=== PATIENT | male | born 1985 | race Caucasian/White ===

== ENCOUNTER 2019-09-09 19:25 | Emergency (ER) | payer MEDICARE, MEDICAID ==
[~2019-09-09] VITALS: Ht 182.9 cm; Wt 101.5 kg
[2019-09-09 21:09] LABS: BASOPHILS # (AUTO) 0.02 x10^3/uL (0-0.1); BASOPHILS % (AUTO) 0 % (0-1); EOSINOPHILS # (AUTO) 0.05 x10^3/uL (0-0.4); EOSINOPHILS % (AUTO) 0 % (1-7); LYMPHOCYTES % (AUTO) 8 % (22-44); MD NO; MEAN CORPUSCULAR HEMOGLOBIN 29.7 pg (27.5-34.5); MEAN CORPUSCULAR HGB CONC 33.8 g/dL (33.2-36.2); MEAN PLATELET VOLUME 12.4 fL (7.4-10.4); MONOCYTES # (AUTO) 0.35 x10^3/uL (0.2-0.8); MONOCYTES % (AUTO) 2 % (2-9); NEUTROPHILS # (AUTO) 14.26 x10^3/uL (1.8-6.8); NEUTROPHILS % (AUTO) 90 % (42-75); PLATELET COUNT 248 x10^3/uL (130-400); RED BLOOD COUNT 6.35 x10^6/uL (4.38-5.82); RED CELL DISTRIBUTION WIDTH 12.7 % (9.4-14.8)
--- NOTE | 2019-09-09 21:10 | NUR ---
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
[2019-09-09 21:18] LABS: ALANINE AMINOTRANSFERASE 28 U/L (12-78); ALBUMIN 4.8 g/dL (3.4-5.0); ANION GAP 13 mmol/L (5-15); CALCIUM 9.6 mg/dL (8.5-10.1); CHLORIDE 97 mmol/L (98-107); CREATININE 1.15 mg/dL (0.7-1.3)
[2019-09-09 21:20] LABS: ALKALINE PHOSPHATASE 99 U/L (45-117); BILIRUBIN,TOTAL 1.4 mg/dL (0.2-1.0); TOTAL PROTEIN 8.9 g/dL (6.4-8.2)
[2019-09-09 21:22] LABS: MICROSCOPIC INDICATED
[2019-09-09] MEDS ORDERED: ONDANSETRON 2MG/ML, 2ML IVPush ONE (21:30)
[2019-09-09] MEDS ORDERED: SODIUM CHLORIDE 0.9% 1,000ML IVBOLUS ONE (21:30)
[2019-09-09] MEDS ORDERED: ONDANSETRON 2MG/ML, 2ML ONE (21:35)
[2019-09-09 21:49] VITALS: BP 141/88
--- NOTE | 2019-09-09 21:49 | NUR ---
PIV PLACED. PLUMBING TECHNICIAN, IVF RUNNING. PT RESTING COMFORTABLY ON GURNEY. NADN. WARM BLANKET PROVIDED.
--- NOTE | 2019-09-09 22:21 | NUR ---
ALL RESULTS ARE BACK AT THIS TIME. IVF COMPLETE. CHART UP FOR RECHECK.
--- NOTE | 2019-09-09 22:29 | NUR ---
MD AT BEDSIDE TO UPDATE PT ON POC.
== END 2019-09-09 23:02 | disposition home or self-care (01) ==
LOC: ED 22:15
DX: R11.2 Nausea with vomiting, unspecified (principal); E86.0 Dehydration; R10.13 Epigastric pain; R73.9 Hyperglycemia, unspecified; R00.0 Tachycardia, unspecified
CPT/HCPCS: 36415; 80053; 81001; 83690; 85025; 96361; 96374; 99283; J2405; J7030

== ENCOUNTER 2019-09-10 22:22 | Inpatient (IN) | payer MEDICARE, MEDICAID ==
[~2019-09-10] VITALS: Ht 182.9 cm; Wt 99.5 kg
[2019-09-10] MEDS ORDERED: FAMOTIDINE 20 MG/2 ML ONE (23:20)
[2019-09-10] MEDS ORDERED: METOCLOPRAMIDE 5 MG/ML, 2ML ONE (23:20)
[2019-09-10] MEDS ORDERED: METOCLOPRAMIDE 5 MG/ML, 2ML IVPush ONE (23:30)
[2019-09-10] MEDS ORDERED: SODIUM CHLORIDE FLUSH 10ML SYR IVF ONE (23:30)
[2019-09-10] MEDS ORDERED: SODIUM CHLORIDE 0.9% 1,000ML IVBOLUS ONE (23:30)
[2019-09-10] MEDS ORDERED: FAMOTIDINE 20 MG/2 ML IV ONE (23:30)
[2019-09-10 23:42] LABS: MEAN CORPUSCULAR HEMOGLOBIN 29.1 pg (27.5-34.5); MEAN CORPUSCULAR HGB CONC 32.5 g/dL (33.2-36.2); MEAN CORPUSCULAR VOLUME 89.4 fL (81-97); MEAN PLATELET VOLUME 11.5 fL (7.4-10.4); PLATELET COUNT 247 x10^3/uL (130-400); RED BLOOD COUNT 6.08 x10^6/uL (4.38-5.82); RED CELL DISTRIBUTION WIDTH 12.6 % (9.4-14.8)
--- NOTE | 2019-09-10 23:46 | NUR ---
THIS IS A 34 YO MALE COMING IN FOR PERSISTENT VOMITING, SEEN HERE LAST NIGHT FOR SAME. STATES MEDICATIONS ARE NOT WORKING THAT HE WAS SENT HOME WITH. PATIENT CURRENTLY C/O EPIGATRIC PAIN, NO RADIATION, VOMITING X2.5 DAYS. DENIES CONSTIPATION OR DIRRHEA. NO OTHER COMPLAINTS AT THIS TIME. A&OX4, VSS, PIV PLACED, MEDICATED PER EMAR, TOLERATED WELL. CALL LIGHT IN REACH
--- NOTE | 2019-09-10 23:51 | NUR ---
PATIENT TO CT. UA COLLECTED AND SENT
[2019-09-10 23:52] LABS: ALBUMIN 4.5 g/dL (3.4-5.0); ANION GAP 15 mmol/L (5-15); CALCIUM 9.4 mg/dL (8.5-10.1); CHLORIDE 86 mmol/L (98-107)
[2019-09-10 23:56] LABS: ALANINE AMINOTRANSFERASE 24 U/L (12-78); ALKALINE PHOSPHATASE 98 U/L (45-117); BILIRUBIN,TOTAL 1.6 mg/dL (0.2-1.0); CREATININE 1.06 mg/dL (0.7-1.3); TOTAL PROTEIN 8.6 g/dL (6.4-8.2)
[2019-09-11 00:04] LABS: MICROSCOPIC INDICATED
[2019-09-11 00:20] LABS: BASOPHILS # (AUTO) 0.03 x10^3/uL (0-0.1); BASOPHILS % (AUTO) 0 % (0-1); EOSINOPHILS % (AUTO) 0 % (1-7); LYMPHOCYTES # (AUTO) 1.88 x10^3/uL (1-3.4); LYMPHOCYTES % (AUTO) 9 % (22-44); MD SCAN; MONOCYTES # (AUTO) 1.37 x10^3/uL (0.2-0.8); MONOCYTES % (AUTO) 7 % (2-9); NEUTROPHILS # (AUTO) 17.84 x10^3/uL (1.8-6.8); NEUTROPHILS % (AUTO) 84 % (42-75)
[2019-09-11] MEDS ORDERED: CARI1CAP PO (00:25)
[2019-09-11] MEDS ORDERED: METF500T17 PO (00:25)
[2019-09-11] MEDS ORDERED: OMEP-110 PO (00:25)
[2019-09-11] MEDS ORDERED: POTASSIUM CHLORIDE 20 MEQ in SODIUM CHLORIDE 0.9% 1,000 ML IV ONE (00:41)
[2019-09-11] MEDS ORDERED: MORPHINE SULFATE 4 MG/ML, 1ML ONE (00:50)
[2019-09-11] MEDS ORDERED: ONDANSETRON 2MG/ML, 2ML ONE (00:50)
--- NOTE | 2019-09-11 00:59 | NUR ---
PATIENT MEDICATED PER EMAR, TOLERATED WELL
[2019-09-11] MEDS ORDERED: SODIUM CHLORIDE 0.9% 1,000ML IVBOLUS ONE (01:00)
[2019-09-11] MEDS ORDERED: POTASSIUM CHLORIDE 20 MEQ in SODIUM CHLORIDE 0.9% 250 ML IV ONE (01:00)
[2019-09-11] MEDS ORDERED: ONDANSETRON 2MG/ML, 2ML IVPush PRN (01:00)
[2019-09-11] MEDS ORDERED: MORPHINE SULFATE 4 MG/ML, 1ML IVPush PRN (01:00)
--- NOTE | 2019-09-11 01:31 | NUR ---
REPORT GIVEN TO MALIK ROMAN. PLAN OF CARE DISCUSSED
[2019-09-11 01:58] VITALS: BP 153/94
[2019-09-11] MEDS ORDERED: PROMETHAZINE 25 MG/ML, 1ML IM PRN (02:00)
[2019-09-11] MEDS ORDERED: METOCLOPRAMIDE 5 MG/ML, 2ML IVPush PRN (02:00)
[2019-09-11] MEDS ORDERED: morphine SULFATE 10 MG/ML, 1ML IVPush PRN (02:00)
[2019-09-11] MEDS ORDERED: GABAPENTIN 300 MG CAPSULE PO PRN (02:00)
[2019-09-11] MEDS ORDERED: TRAZODONE 50MG TABLET PO PRN (02:00)
[2019-09-11] MEDS ORDERED: ACETAMINOPHEN 325 MG TABLET PO PRN (02:00)
[2019-09-11] MEDS ORDERED: PANTOPRAZOLE 40 MG IV IVPush ONE (02:30)
[2019-09-11 02:42] LABS: AMPHETAMINE SCREEN, URINE Negative (Negative); BARBITURATE SCREEN, URINE Negative (Negative); BENZODIAZEPINE SCREEN, URINE Negative (Negative); CANNABINOID SCREEN, URINE Positive (Negative); COCAINE SCREEN, URINE Negative (Negative); METHADONE SCREEN, URINE Negative (Negative); OPIATE SCREEN, URINE Negative (Negative)
[2019-09-11] MEDS: SODIUM CHLORIDE 0.9% 1,000 ML IV SCH ×3 (02:43→21:03)
[2019-09-11] MEDS: INSULIN LISPRO 100 UNITS/ML, PEN SQ-INSULIN SCH ×5 (03:08→21:09)
[2019-09-11 05:34] LABS: ANION GAP 10 mmol/L (5-15); CALCIUM 8.9 mg/dL (8.5-10.1); CHLORIDE 96 mmol/L (98-107)
[2019-09-11 05:35] LABS: CREATININE 0.79 mg/dL (0.7-1.3)
[2019-09-11 05:36] LABS: BASOPHILS # (AUTO) 0.01 x10^3/uL (0-0.1); BASOPHILS % (AUTO) 0 % (0-1); EOSINOPHILS # (AUTO) 0.01 x10^3/uL (0-0.4); EOSINOPHILS % (AUTO) 0 % (1-7); LYMPHOCYTES # (AUTO) 1.49 x10^3/uL (1-3.4); LYMPHOCYTES % (AUTO) 10 % (22-44); MD NO; MEAN CORPUSCULAR HEMOGLOBIN 29.6 pg (27.5-34.5); MEAN CORPUSCULAR HGB CONC 33.6 g/dL (33.2-36.2); MEAN CORPUSCULAR VOLUME 87.9 fL (81-97); MEAN PLATELET VOLUME 13.3 fL (7.4-10.4); MONOCYTES # (AUTO) 1.27 x10^3/uL (0.2-0.8); MONOCYTES % (AUTO) 8 % (2-9); NEUTROPHILS # (AUTO) 12.77 x10^3/uL (1.8-6.8); NEUTROPHILS % (AUTO) 82 % (42-75); PLATELET COUNT 190 x10^3/uL (130-400); RED BLOOD COUNT 5.19 x10^6/uL (4.38-5.82); RED CELL DISTRIBUTION WIDTH 12.7 % (9.4-14.8)
[2019-09-11] MEDS ORDERED: OMNIPAQUE 350 MG/ML, 100ML BOTTLE ONE (06:07)
[2019-09-11 07:58] VITALS: BP 170/90
[2019-09-11 09:50] VITALS: BP 143/89
[2019-09-11] MEDS: ONDANSETRON 2MG/ML, 2ML IVPush PRN ×2 (10:36→22:17)
[2019-09-11] MEDS: POTASSIUM CHLORIDE 20 MEQ PACKET PO SCH (10:41)
[2019-09-11 12:55] VITALS: BP 179/113
[2019-09-11] MEDS: PANTOPRAZOLE 40 MG IV IVPush SCH (15:38)
[2019-09-11] MEDS: METOCLOPRAMIDE 5 MG/ML, 2ML IVPush SCH ×2 (15:39→21:03)
[2019-09-11 19:43] VITALS: BP 143/83
[2019-09-12 02:34] VITALS: BP 164/90
[2019-09-12] MEDS: METOCLOPRAMIDE 5 MG/ML, 2ML IVPush SCH ×4 (02:38→20:49)
[2019-09-12 04:32] LABS: BASOPHILS # (AUTO) 0.05 x10^3/uL (0-0.1); BASOPHILS % (AUTO) 1 % (0-1); EOSINOPHILS # (AUTO) 0.04 x10^3/uL (0-0.4); EOSINOPHILS % (AUTO) 0 % (1-7); LYMPHOCYTES # (AUTO) 1.83 x10^3/uL (1-3.4); LYMPHOCYTES % (AUTO) 17 % (22-44); MD NO; MEAN CORPUSCULAR HEMOGLOBIN 29.9 pg (27.5-34.5); MEAN CORPUSCULAR HGB CONC 33.4 g/dL (33.2-36.2); MEAN CORPUSCULAR VOLUME 89.5 fL (81-97); MEAN PLATELET VOLUME 13.2 fL (7.4-10.4); MONOCYTES # (AUTO) 0.85 x10^3/uL (0.2-0.8); MONOCYTES % (AUTO) 8 % (2-9); NEUTROPHILS # (AUTO) 7.81 x10^3/uL (1.8-6.8); NEUTROPHILS % (AUTO) 74 % (42-75); PLATELET COUNT 168 x10^3/uL (130-400); RED BLOOD COUNT 4.92 x10^6/uL (4.38-5.82); RED CELL DISTRIBUTION WIDTH 12.8 % (9.4-14.8)
[2019-09-12 04:40] LABS: ALBUMIN 3.3 g/dL (3.4-5.0); ANION GAP 8 mmol/L (5-15); CALCIUM 8.4 mg/dL (8.5-10.1); CHLORIDE 99 mmol/L (98-107)
[2019-09-12 04:46] LABS: ALANINE AMINOTRANSFERASE 17 U/L (12-78); ALKALINE PHOSPHATASE 72 U/L (45-117); BILIRUBIN,TOTAL 1.3 mg/dL (0.2-1.0); CREATININE 0.81 mg/dL (0.7-1.3); TOTAL PROTEIN 6.6 g/dL (6.4-8.2)
[2019-09-12] MEDS: SODIUM CHLORIDE 0.9% 1,000 ML IV SCH ×3 (05:23→20:54)
[2019-09-12] MEDS: PANTOPRAZOLE 40 MG IV IVPush SCH ×2 (06:10→16:39)
[2019-09-12 07:34] VITALS: BP 172/84
[2019-09-12] MEDS: INSULIN LISPRO 100 UNITS/ML, PEN SQ-INSULIN SCH ×4 (08:38→20:58)
[2019-09-12] MEDS: POTASSIUM CHLORIDE 20 MEQ PACKET PO SCH (08:38)
[2019-09-12 13:32] VITALS: BP 161/105
[2019-09-12 15:10] VITALS: BP 168/93
[2019-09-12 20:35] VITALS: BP 159/97
[2019-09-13 01:44] VITALS: BP 157/96
[2019-09-13] MEDS: METOCLOPRAMIDE 5 MG/ML, 2ML IVPush SCH ×2 (03:37→09:30)
[2019-09-13] MEDS: SODIUM CHLORIDE 0.9% 1,000 ML IV SCH (04:42)
[2019-09-13 05:46] LABS: ANION GAP 12 mmol/L (5-15); CALCIUM 8.6 mg/dL (8.5-10.1); CHLORIDE 101 mmol/L (98-107)
[2019-09-13 05:47] LABS: CREATININE 0.76 mg/dL (0.7-1.3)
[2019-09-13 05:50] LABS: BASOPHILS # (AUTO) 0.02 x10^3/uL (0-0.1); BASOPHILS % (AUTO) 0 % (0-1); EOSINOPHILS # (AUTO) 0.03 x10^3/uL (0-0.4); EOSINOPHILS % (AUTO) 0 % (1-7); LYMPHOCYTES # (AUTO) 1.93 x10^3/uL (1-3.4); LYMPHOCYTES % (AUTO) 24 % (22-44); MD NO; MEAN CORPUSCULAR HEMOGLOBIN 29.7 pg (27.5-34.5); MEAN CORPUSCULAR HGB CONC 33.8 g/dL (33.2-36.2); MEAN CORPUSCULAR VOLUME 87.7 fL (81-97); MEAN PLATELET VOLUME 13.2 fL (7.4-10.4); MONOCYTES # (AUTO) 0.61 x10^3/uL (0.2-0.8); MONOCYTES % (AUTO) 8 % (2-9); NEUTROPHILS # (AUTO) 5.55 x10^3/uL (1.8-6.8); NEUTROPHILS % (AUTO) 68 % (42-75); PLATELET COUNT 159 x10^3/uL (130-400); RED BLOOD COUNT 5.24 x10^6/uL (4.38-5.82); RED CELL DISTRIBUTION WIDTH 12.2 % (9.4-14.8)
[2019-09-13] MEDS: PANTOPRAZOLE 40 MG IV IVPush SCH (05:59)
[2019-09-13 08:01] VITALS: BP 179/99
[2019-09-13] MEDS: POTASSIUM CHLORIDE 20 MEQ PACKET PO SCH (08:11)
[2019-09-13] MEDS: INSULIN LISPRO 100 UNITS/ML, PEN SQ-INSULIN SCH ×2 (08:11→11:59)
[2019-09-13] MEDS ORDERED: HYDR-3343 PO (09:18)
== END 2019-09-13 13:27 | disposition home or self-care (01) | DRG 73 ==
LOC: ED 09-11 00:19 → INTOOBSV 09-11 01:01 → EDIP 09-11 01:01 → OBSVTOIN 09-11 01:01 → 3N 09-11 01:48 → DCLOUNGE 09-13 13:23
PROVIDERS: ADMIT Family Medicine; ATTEND Hospitalist
DX: E11.43 Type 2 diabetes mellitus with diabetic autonomic (poly)neuropathy (principal); N17.0 Acute kidney failure with tubular necrosis; E87.1 Hypo-osmolality and hyponatremia; E87.6 Hypokalemia; E86.0 Dehydration; K31.84 Gastroparesis; D72.829 Elevated white blood cell count, unspecified; E11.65 Type 2 diabetes mellitus with hyperglycemia; E86.1 Hypovolemia; F31.9 Bipolar disorder, unspecified; F90.9 Attention-deficit hyperactivity disorder, unspecified type; I10 Essential (primary) hypertension; K21.9 Gastro-esophageal reflux disease without esophagitis; Z79.899 Other long term (current) drug therapy; Z79.84 Long term (current) use of oral hypoglycemic drugs; Z91.018 Allergy to other foods
CPT/HCPCS: 36415; 74177; 80048; 80053; 80307; 81001; 82962; 83036; 83690; 83735; 85025; 96374; 96375; 96376; 99285; G0378; J2405; J3480; Q9967; C9113; J1815; J2270; J2765; J3490; J7030; J7050

== ENCOUNTER 2019-11-18 22:47 | Emergency (ER) | payer MEDICARE, MEDICAID ==
[~2019-11-18] VITALS: Ht 182.9 cm; Wt 104.0 kg
[~2019-11-18 22:47] MED LIST: CARI1CAP PO; HYDR-3343 PO; METF500T17 PO; OMEP-110 PO
--- NOTE | 2019-11-18 22:50 | NUR ---
34 YEAR OLD MALE TO ED VIA [facility] FOR RLQ ABDOMINAL PAIN, NAUSEA, AND VOMITING X 2 DAYS. PMHX OF DM, CYCLIC VOMITING, AND DIVERTICULITIS
[2019-11-18] MEDS ORDERED: ONDANSETRON 2MG/ML, 2ML IVPush ONE (23:00)
[2019-11-18] MEDS ORDERED: SODIUM CHLORIDE 0.9% 1,000ML IVBOLUS ONE (23:00)
[2019-11-18] MEDS ORDERED: ONDANSETRON 2MG/ML, 2ML ONE (23:00)
[2019-11-18 23:08] LABS: BASOPHILS % (AUTO) 1 % (0-1); EOSINOPHILS % (AUTO) 0 % (1-7); LYMPHOCYTES % (AUTO) 11 % (22-44); MEAN CORPUSCULAR HEMOGLOBIN 29.3 pg (27.5-34.5); MEAN CORPUSCULAR HGB CONC 33.7 g/dL (33.2-36.2); MEAN PLATELET VOLUME 10.9 fL (7.4-10.4); MONOCYTES % (AUTO) 10 % (2-9); NEUTROPHILS % (AUTO) 79 % (42-75); PLATELET COUNT 246 x10^3/uL (130-400); RED BLOOD COUNT 6.14 x10^6/uL (4.38-5.82)
[2019-11-18 23:19] LABS: ALANINE AMINOTRANSFERASE 58 U/L (12-78); ALBUMIN 4.3 g/dL (3.4-5.0); ANION GAP 14 mmol/L (5-15); CALCIUM 9.4 mg/dL (8.5-10.1); CHLORIDE 84 mmol/L (98-107); CREATININE 1.24 mg/dL (0.7-1.3)
[2019-11-18 23:21] LABS: ALKALINE PHOSPHATASE 103 U/L (45-117); TOTAL PROTEIN 8.3 g/dL (6.4-8.2)
[2019-11-18 23:37] LABS: MD SCAN
[2019-11-19 00:04] VITALS: BP 151/92
== END 2019-11-19 01:14 | disposition home or self-care (01) ==
LOC: ED 23:42
DX: E86.0 Dehydration (principal); R11.2 Nausea with vomiting, unspecified; R10.32 Left lower quadrant pain; R42 Dizziness and giddiness; K21.9 Gastro-esophageal reflux disease without esophagitis; E11.9 Type 2 diabetes mellitus without complications; E87.1 Hypo-osmolality and hyponatremia; E87.6 Hypokalemia; Z87.891 Personal history of nicotine dependence
CPT/HCPCS: 36415; 80053; 83690; 85025; 96361; 96374; 99283; J2405; J7030

== ENCOUNTER 2020-06-14 21:27 | Emergency (ER) | payer MEDICARE, MEDICAID ==
[~2020-06-14] VITALS: Ht 182.9 cm; Wt 104.0 kg
[2020-06-14] MEDS ORDERED: PROMETHAZINE 25 MG/ML, 1ML IM ONE (21:30)
[2020-06-14] MEDS ORDERED: SODIUM CHLORIDE 0.9% 1,000ML IVBOLUS ONE (21:30)
[2020-06-14] MEDS ORDERED: MORPHINE SULFATE 4 MG/ML, 1ML IVPush PRN (21:30)
[2020-06-14] MEDS ORDERED: SODIUM CHLORIDE FLUSH 10ML SYR IVF ONE (21:30)
[2020-06-14] MEDS ORDERED: ONDANSETRON 2MG/ML, 2ML IVPush ONE (21:30)
[2020-06-14] MEDS ORDERED: ONDANSETRON 2MG/ML, 2ML ONE (21:50)
[2020-06-14] MEDS ORDERED: PROMETHAZINE 25 MG/ML, 1ML ONE (21:50)
[2020-06-14] MEDS ORDERED: MORPHINE SULFATE 4 MG/ML, 1ML ONE (21:50)
--- NOTE | 2020-06-14 21:59 | NUR ---
PT BACK FROM XRAY, MEDICATED PER ERP ORDER FOR N/V AND ABD PAIN. NS BOLUS INFUSING. REPORT TO JQ, TRANSFER OF CARE AT THIS TIME.
--- NOTE | 2020-06-14 22:00 | NUR ---
REport received from MALIK Kwong. This RN to assume care.
[2020-06-14 22:07] LABS: BASOPHILS % (AUTO) 0 % (0-1); EOSINOPHILS % (AUTO) 0 % (1-7); LYMPHOCYTES % (AUTO) 16 % (22-44); MEAN CORPUSCULAR HEMOGLOBIN 30.6 pg (27.5-34.5); MEAN CORPUSCULAR HGB CONC 35.9 g/dL (33.2-36.2); MONOCYTES % (AUTO) 10 % (2-9); NEUTROPHILS % (AUTO) 73 % (42-75); PLATELET COUNT 258 x10^3/uL (130-400); RED BLOOD COUNT 6.05 x10^6/uL (4.38-5.82); RED CELL DISTRIBUTION WIDTH 12.9 % (9.4-14.8)
[2020-06-14 22:16] LABS: ALBUMIN 4.4 g/dL (3.4-5.0); ANION GAP 11 mmol/L (5-15); CALCIUM 9.3 mg/dL (8.5-10.1); CHLORIDE 85 mmol/L (98-107)
[2020-06-14 22:19] LABS: ALANINE AMINOTRANSFERASE 20 U/L (12-78); ALKALINE PHOSPHATASE 95 U/L (45-117); BILIRUBIN,TOTAL 1.4 mg/dL (0.2-1.0); TOTAL PROTEIN 8.1 g/dL (6.4-8.2)
[2020-06-14 22:38] LABS: ACETONE, SERUM Moderate(40mg/dL) (Negative)
[2020-06-14 22:45] LABS: MD MORPH REVIEW ONLY
[2020-06-14 22:46] LABS: <PLATELET ESTIMATE> ADEQUATE; <RBC MORPHOLOGY> NORMAL; LARGE PLATELETS 1+
[2020-06-14] MEDS ORDERED: POTASSIUM CHLORIDE 20 MEQ TAB.ER.PRT PO ONE (23:00)
[2020-06-14 23:07] VITALS: BP 136/88
--- NOTE | 2020-06-14 23:16 | NUR ---
Advised patient that a urine sample is needed. Patient states he will attempt.
--- NOTE | 2020-06-15 00:10 | NUR ---
Discharge instructions given. All questions and concerns addressed. Patient ambulatory with a steady gait. Belongings with patient.
== END 2020-06-15 00:12 | disposition home or self-care (01) ==
LOC: ED 22:20
DX: R11.2 Nausea with vomiting, unspecified (principal); E86.0 Dehydration; R10.84 Generalized abdominal pain; E10.65 Type 1 diabetes mellitus with hyperglycemia; E87.6 Hypokalemia; E87.1 Hypo-osmolality and hyponatremia; I10 Essential (primary) hypertension
CPT/HCPCS: 36415; 74022; 80053; 82010; 82800; 83036; 83690; 85025; 96361; 96372; 96374; 96375; 99284; J2270; J2405; J2550; J7030

== ENCOUNTER 2020-07-28 18:52 | Emergency (ER) | payer MEDICARE, MEDICAID ==
[~2020-07-28] VITALS: Ht 182.9 cm; Wt 104.0 kg
--- NOTE | 2020-07-28 19:02 | NUR ---
PT BIB [facility] FOR NAUSEA AND RED EMESIS AFTER RECENT SCOPE OF UPPER GI TO R/O ULCER. PT WAS GIVEN [address] AND 4 ZO[address] R[address]TE. PT IN GOWN IN [facility]. PT EDUCATED ON ER PROCESS AND POC AND VERBALIZES UNDERSTANDING. PT ATTACHED TO VS MONITORS. VSS AT THIS TIME. PT DENIES ANY NEEDS AT THIS TIME.
[2020-07-28] MEDS ORDERED: PROMETHAZINE 25 MG/ML, 1ML IM ONE (19:30)
[2020-07-28] MEDS ORDERED: SODIUM CHLORIDE 0.9% 1,000ML IVBOLUS ONE (19:30)
[2020-07-28] MEDS ORDERED: MORPHINE SULFATE 4 MG/ML, 1ML IVPush PRN (19:30)
[2020-07-28] MEDS ORDERED: ONDANSETRON 2MG/ML, 2ML IVPush ONE (19:30)
[2020-07-28 19:35] LABS: BASOPHILS % (AUTO) 1 % (0-1); EOSINOPHILS % (AUTO) 1 % (1-7); LYMPHOCYTES % (AUTO) 18 % (22-44); MEAN CORPUSCULAR HEMOGLOBIN 30.1 pg (27.5-34.5); MEAN CORPUSCULAR HGB CONC 34.4 g/dL (33.2-36.2); MEAN PLATELET VOLUME 10.5 fL (7.4-10.4); MONOCYTES % (AUTO) 7 % (2-9); NEUTROPHILS % (AUTO) 74 % (42-75); PLATELET COUNT 205 x10^3/uL (130-400); RED BLOOD COUNT 5.58 x10^6/uL (4.38-5.82); RED CELL DISTRIBUTION WIDTH 13.2 % (9.4-14.8)
[2020-07-28 19:46] LABS: ALANINE AMINOTRANSFERASE 40 U/L (12-78); ALBUMIN 4.5 g/dL (3.4-5.0); ANION GAP 9 mmol/L (5-15); CALCIUM 9.6 mg/dL (8.5-10.1); CHLORIDE 105 mmol/L (98-107); CREATININE 0.78 mg/dL (0.7-1.3)
[2020-07-28 19:49] LABS: ALKALINE PHOSPHATASE 102 U/L (45-117); BILIRUBIN,TOTAL 1.1 mg/dL (0.2-1.0); TOTAL PROTEIN 8.3 g/dL (6.4-8.2)
[2020-07-28] MEDS ORDERED: PROMETHAZINE 25 MG/ML, 1ML ONE (19:51)
[2020-07-28] MEDS ORDERED: ONDANSETRON 2MG/ML, 2ML ONE (19:51)
--- NOTE | 2020-07-28 19:56 | NUR ---
PT MEDICATED PER APR FOR NAUSEA.
[2020-07-28] MEDS ORDERED: hydrALAzine 20 MG/ML, 1ML ONE (20:19)
[2020-07-28] MEDS ORDERED: hydrALAzine 20 MG/ML, 1ML IV ONE (20:30)
[2020-07-28] MEDS ORDERED: DIPHENHYDRAMINE 50 MG/ML, 1ML IVPush ONE (20:30)
[2020-07-28] MEDS ORDERED: HALOPERIDOL 5 MG/ML IM ONE (20:30)
[2020-07-28] MEDS ORDERED: DIPHENHYDRAMINE 50 MG/ML, 1ML ONE (20:56)
[2020-07-28] MEDS ORDERED: HALOPERIDOL 5 MG/ML ONE (21:02)
[2020-07-28 22:08] VITALS: BP 142/80
--- NOTE | 2020-07-28 22:15 | NUR ---
Task RN: Patient given discharge instructions and they have confirmed that they understand the instructions. Patient ambulatory with steady gait.
== END 2020-07-28 22:16 | disposition home or self-care (01) ==
LOC: ED 21:12
DX: E10.43 Type 1 diabetes mellitus with diabetic autonomic (poly)neuropathy (principal); K31.84 Gastroparesis; I10 Essential (primary) hypertension; R11.2 Nausea with vomiting, unspecified; E10.65 Type 1 diabetes mellitus with hyperglycemia
CPT/HCPCS: 36415; 80053; 83690; 85025; 96361; 96372; 96374; 96375; 99284; J0360; J1200; J2405; J2550; J7030

== ENCOUNTER 2020-09-03 15:47 | Emergency (ER) | payer MEDICAID, MEDICARE ==
[~2020-09-03] VITALS: Ht 182.9 cm; Wt 98.6 kg
[2020-09-03] MEDS ORDERED: DIPHENHYDRAMINE 50 MG/ML, 1ML ONE (16:10)
[2020-09-03] MEDS ORDERED: METOCLOPRAMIDE 5 MG/ML, 2ML ONE (16:10)
[2020-09-03] MEDS ORDERED: MORPHINE SULFATE 4 MG/ML, 1ML ONE (16:10)
[2020-09-03 16:30] LABS: BASOPHILS % (AUTO) 0 % (0-1); EOSINOPHILS % (AUTO) 0 % (1-7); LYMPHOCYTES % (AUTO) 14 % (22-44); MEAN CORPUSCULAR HGB CONC 34.3 g/dL (33.2-36.2); MONOCYTES % (AUTO) 7 % (2-9); NEUTROPHILS % (AUTO) 79 % (42-75); PLATELET COUNT 282 x10^3/uL (130-400); RED BLOOD COUNT 5.85 x10^6/uL (4.38-5.82)
[2020-09-03] MEDS ORDERED: METOCLOPRAMIDE 5 MG/ML, 2ML IVPush ONE (16:30)
[2020-09-03] MEDS ORDERED: SODIUM CHLORIDE 0.9% 1,000ML IVBOLUS ONE (16:30)
[2020-09-03] MEDS ORDERED: DIPHENHYDRAMINE 50 MG/ML, 1ML IVPush ONE (16:30)
[2020-09-03] MEDS ORDERED: SODIUM CHLORIDE FLUSH 10ML SYR IVF ONE (16:30)
[2020-09-03] MEDS ORDERED: MORPHINE SULFATE 4 MG/ML, 1ML IVPush PRN (16:30)
[2020-09-03 16:32] LABS: ALANINE AMINOTRANSFERASE 32 U/L (12-78); ALBUMIN 4.5 g/dL (3.4-5.0); ANION GAP 13 mmol/L (5-15); CALCIUM 9.1 mg/dL (8.5-10.1); CHLORIDE 84 mmol/L (98-107); CREATININE 0.99 mg/dL (0.7-1.3)
[2020-09-03 16:34] LABS: ALKALINE PHOSPHATASE 112 U/L (45-117); BILIRUBIN,TOTAL 2.3 mg/dL (0.2-1.0); TOTAL PROTEIN 8.5 g/dL (6.4-8.2)
[2020-09-03 17:23] LABS: ACETONE, SERUM Large (80mg/dL) (Negative)
--- NOTE | 2020-09-03 19:27 | NUR ---
FIRST CONTACT, MALIK ZAPATA IS DISCHARGING THE PT. FOR THE PRIMARY CARE RN LUCIANO. PT. WAS GIVEN DISCHARGE INSTRUCTIONS AND SCRIPTS WITH UNDERSTANDING VERBALIZED ALONG WITH WILLINGNESS TO COMPLY. PT. WAS AMBULATORY TO THE DISCHARGE DESK. VSS. PT. REPORTS FEELING BETTER AND HE DID VOID UPON DISCHARGE.
[2020-09-03 19:30] VITALS: BP 121/74
== END 2020-09-03 19:33 | disposition home or self-care (01) ==
LOC: ED 18:15
DX: R10.84 Generalized abdominal pain (principal); R11.2 Nausea with vomiting, unspecified; E10.65 Type 1 diabetes mellitus with hyperglycemia; I10 Essential (primary) hypertension; Z87.891 Personal history of nicotine dependence
CPT/HCPCS: 36415; 80053; 82010; 82803; 83690; 85025; 96361; 96374; 96375; 99284; J1200; J2270; J2765; J7030

== ENCOUNTER 2020-09-25 12:04 | Outpatient (CLI) | payer MEDICARE, MEDICAID | END 2020-09-25 23:59 | disposition home or self-care (01) | LOC: RAD 12:04 | PROVIDERS: ATTEND Nurse Practitioner Family | DX: R11.2 Nausea with vomiting, unspecified (principal) | CPT/HCPCS: 78264; A9541 ==